=== PATIENT | female | born 1960 | race Caucasian/White ===

== ENCOUNTER 2023-11-25 10:07 | Outpatient (CLI) | payer BC ==
[~2023-11-25 10:07] MED LIST: Iopamidol 370 76% 100 ML VIAL ONE
== END 2023-11-25 10:08 | disposition home or self-care (01) ==
LOC: BICCT 10:07
PROVIDERS: ATTEND Physician Assistant Medical
DX: K80.20 Calculus of gallbladder without cholecystitis without obstruction (principal); K76.89 Other specified diseases of liver; R15.2 Fecal urgency; Z86.0100 Personal history of colon polyps, unspecified
CPT/HCPCS: 74170; 82565; Q9967